=== PATIENT | male | born 1940 | race Caucasian/White ===

== ENCOUNTER 2021-02-23 15:22 | Inpatient (IN) ==
[2021-02-23] MEDS ORDERED: ACETAMINOPHEN 500 MG TABLET ONE (16:03)
[2021-02-23 16:14] LABS: Basophils # 0.1 10*3/uL (0.0-0.2); Basophils % 0.3 % (0.0-0.8); Eosinophils # 0.1 10*3/uL (0.0-0.87); Eosinophils % 0.5 % (0.00-10.9); Hematocrit 28.9 VOL% (42.0-52.0); Hemoglobin 9.1 GM/DL (14.0-18.0); Immature Granulocytes % 0.5 %; Immature Granulocytes Absolute 0.08 #; Lymphocytes # 1.3 10*3/uL (1.4-4.0); Mean Corpuscular HGB Conc 31.5 GM/DL (32-36); Mean Platelet Volume 11.2 FL (9.6-12.0); Monocytes % 7.4 % (1.7-12.7); Neutrophils % 82.3 % (38.7-73.9); Platelet Count 272 T/CUMM (130-400); Red Blood Count 3.32 MC/CUMM (3.8-5.5); Red Cell Distribution Width 16.5 % (9.3-17.3); White Blood Count 14.8 T/CUMM (4-12)
[2021-02-23] MEDS ORDERED: LEVOFLOXACIN INJ 750 MG/150 ML PREMIX IV STA (16:15)
[2021-02-23 16:18] LABS: ABG Base Excess 0.1 MMOL/L (-2.5-2.5); ABG HCO3 22.5 MMOL/L (20-26); ABG PCO2 28.4 MM HG (35-48); ABG PH 7.517 (7.35-7.45); ABG PO2 82.2 MM HG (80-95); ABG TCO2 23.4 MMOL/L (23-27)
[2021-02-23 16:34] LABS: Albumin 2.6 G/DL (3.4-5.0); Bilirubin,Total 0.6 MG/DL (0.2-1.0); Calcium 8.7 MG/DL (8.5-10.1); Osmolality,Calculated 281.5 MOS/KG (273-304); Potassium 3.7 MMOL/L (3.5-5.1); Total Protein 6.8 G/DL (6.4-8.2)
[2021-02-23 16:37] LABS: Anisocytosis Slight; Eosinophils 1 % (0-10); Lymphocytes 6 % (20-55); Segmented Neutrophils 84 % (50-85); Total Cells Counted 100
[2021-02-23 16:38] LABS: Acanthocytes Few; Platelet Estimate Adequate; Poikilocytosis Few; Polychromasia Few
[2021-02-23 16:40] LABS: INR 1.3; PT Patient Result 14.3 SECS (10.5-12.0); Partial Thromboplastin Time 34.8 SECS (23.9-33.8)
[2021-02-23] MEDS ORDERED: ACETAMINOPHEN 500 MG TABLET PO STA (16:54)
[2021-02-23] MEDS ORDERED: FUROSEMIDE 100 MG/10 ML VIAL IV STA (17:04)
[2021-02-23] MEDS ORDERED: PIPERACILLIN/TAZOBACTAM 3,375 MG in SODIUM CHLORIDE 0.9% 100 ML IV STA ×2 (17:04→17:17)
[2021-02-23] MEDS ORDERED: ONDANSETRON 4 MG/2 ML VIAL IV PRN (17:21)
[2021-02-23] MEDS ORDERED: LEVOFLOXACIN INJ 750 MG/150 ML PREMIX IV SCH (17:30)
[2021-02-23] MEDS: PIPERACILLIN/TAZOBACTAM 3,375 MG in SODIUM CHLORIDE 0.9% 100 ML IV SCH (19:39)
[2021-02-23] MEDS: AMIODARONE 200 MG TABLET PO SCH (20:40)
[2021-02-23] MEDS: clonazePAM 0.5 MG TABLET PO SCH (20:40)
[2021-02-23] MEDS: MEMANTINE 10 MG TABLET PO SCH (20:40)
[2021-02-23] MEDS: DOCUSATE SODIUM 100 MG CAPSULE PO SCH (20:40)
[2021-02-23] MEDS: rOPINIRole 0.25 MG TABLET PO SCH (20:40)
[2021-02-23] MEDS ORDERED: APIXABAN 2.5 MG TABLET PO SCH (21:00)
[2021-02-23 22:55] LABS: Bilirubin,Urine Negative (Negative); Blood, Urine Moderate mg/dL (Negative); Glucose,Urine (UA) Negative (Negative); Ketones,Urine Negative (Negative); Mucus,Urine Occasional /LPF (Occasional); Nitrite,Urine Negative (Negative); Protein,Urine Negative; RBC,Urine <1 /HPF (0-4); Urine Appearance CLEAR (Clear); Urine Color Colorless (Yellow); Urine Specific Gravity 1.008 (1.001-1.035); Urine Urobilinogen < 2.0 EU/DL (0.2-1.0)
[2021-02-24] MEDS ORDERED: FUROSEMIDE 40 MG/4 ML VIAL IV ONE
[2021-02-24] MEDS: PIPERACILLIN/TAZOBACTAM 3,375 MG in SODIUM CHLORIDE 0.9% 100 ML IV SCH ×3 (00:30→19:10)
[2021-02-24 06:33] LABS: Basophils # 0.1 10*3/uL (0.0-0.2); Basophils % 0.4 % (0.0-0.8); Eosinophils # 0.1 10*3/uL (0.0-0.87); Hematocrit 30.2 VOL% (42.0-52.0); Hemoglobin 9.6 GM/DL (14.0-18.0); Immature Granulocytes % 0.6 %; Immature Granulocytes Absolute 0.08 #; Lymphocytes # 1.4 10*3/uL (1.4-4.0); Lymphocytes % 9.5 % (21.2-54.2); Mean Corpuscular HGB Conc 31.8 GM/DL (32-36); Mean Corpuscular Volume 86.5 FL (87-102); Mean Platelet Volume 11.1 FL (9.6-12.0); Monocytes % 7.1 % (1.7-12.7); Neutrophils % 81.4 % (38.7-73.9); Platelet Count 246 T/CUMM (130-400); Red Blood Count 3.49 MC/CUMM (3.8-5.5); Red Cell Distribution Width 16.4 % (9.3-17.3); White Blood Count 14.3 T/CUMM (4-12)
[2021-02-24 07:06] LABS: Albumin 2.5 G/DL (3.4-5.0); Calcium 8.8 MG/DL (8.5-10.1); Osmolality,Calculated 277.7 MOS/KG (273-304); Potassium 3.1 MMOL/L (3.5-5.1); Total Protein 7.2 G/DL (6.4-8.2)
[2021-02-24] MEDS: ACETAMINOPHEN 325 MG TABLET PO PRN ×2 (09:50→23:30)
[2021-02-24] MEDS: DUTASTERIDE 0.5 MG CAPSULE PO SCH (09:50)
[2021-02-24] MEDS: PANTOPRAZOLE 40 MG TABLET PO SCH (09:51)
[2021-02-24] MEDS: CARBIDOPA/LEVODOPA CR 25-100 MG TABLET PO SCH ×3 (09:51→16:25)
[2021-02-24] MEDS: DOCUSATE SODIUM 100 MG CAPSULE PO SCH ×2 (09:52→20:31)
[2021-02-24] MEDS: AMIODARONE 200 MG TABLET PO SCH ×2 (09:57→20:31)
[2021-02-24] MEDS: LIDOCAINE 5% PATCH TRANSDERM SCH (10:01)
[2021-02-24] MEDS: MEMANTINE 10 MG TABLET PO SCH ×2 (10:02→20:31)
[2021-02-24] MEDS: rOPINIRole 0.25 MG TABLET PO SCH ×3 (10:02→20:30)
[2021-02-24] MEDS ORDERED: LEVOFLOXACIN INJ 750 MG/150 ML PREMIX IV SCH (17:00)
[2021-02-24] MEDS ORDERED: NON-FORMULARY MEDICATION (Omeprazole 20 MG capsule,delayed release(DR/EC)) PO SCH (17:00)
[2021-02-24] MEDS: FUROSEMIDE 40 MG/4 ML VIAL IV SCH (20:30)
[2021-02-24] MEDS: clonazePAM 0.5 MG TABLET PO SCH (20:31)
[2021-02-25] MEDS: PIPERACILLIN/TAZOBACTAM 3,375 MG in SODIUM CHLORIDE 0.9% 100 ML IV SCH ×3 (01:21→18:02)
[2021-02-25 06:08] LABS: Basophils # 0.1 10*3/uL (0.0-0.2); Basophils % 0.5 % (0.0-0.8); Eosinophils # 0.6 10*3/uL (0.0-0.87); Hematocrit 31.6 VOL% (42.0-52.0); Hemoglobin 10.1 GM/DL (14.0-18.0); Immature Granulocytes % 0.6 %; Immature Granulocytes Absolute 0.08 #; Lymphocytes # 1.6 10*3/uL (1.4-4.0); Lymphocytes % 11.3 % (21.2-54.2); Mean Corpuscular Volume 85.2 FL (87-102); Monocytes % 7.3 % (1.7-12.7); Neutrophils % 76.3 % (38.7-73.9); Platelet Count 266 T/CUMM (130-400); Red Blood Count 3.71 MC/CUMM (3.8-5.5); Red Cell Distribution Width 16.2 % (9.3-17.3)
[2021-02-25 06:52] LABS: Calcium 8.9 MG/DL (8.5-10.1); Osmolality,Calculated 282.4 MOS/KG (273-304)
[2021-02-25] MEDS ORDERED: POTASSIUM CHLORIDE 20 MEQ TABLET PO ONE (06:53)
[2021-02-25] MEDS: TAMSULOSIN 0.4 MG CAPSULE PO SCH ×2 (09:46→21:09)
[2021-02-25] MEDS: AMIODARONE 200 MG TABLET PO SCH ×2 (09:46→21:09)
[2021-02-25] MEDS: MEMANTINE 10 MG TABLET PO SCH ×2 (09:46→21:09)
[2021-02-25] MEDS: CARBIDOPA/LEVODOPA CR 25-100 MG TABLET PO SCH ×3 (09:46→18:00)
[2021-02-25] MEDS: PANTOPRAZOLE 40 MG TABLET PO SCH (09:46)
[2021-02-25] MEDS: DOCUSATE SODIUM 100 MG CAPSULE PO SCH ×2 (09:47→21:09)
[2021-02-25] MEDS: rOPINIRole 0.25 MG TABLET PO SCH ×3 (09:47→21:10)
[2021-02-25] MEDS: FUROSEMIDE 40 MG/4 ML VIAL IV SCH ×2 (09:47→16:27)
[2021-02-25] MEDS: POTASSIUM CHLORIDE 20 MEQ TABLET PO SCH (09:50)
[2021-02-25] MEDS: DUTASTERIDE 0.5 MG CAPSULE PO SCH (09:50)
[2021-02-25] MEDS: LIDOCAINE 5% PATCH TRANSDERM SCH (10:13)
[2021-02-25] MEDS: LEVOFLOXACIN 750 MG TABLET PO SCH (12:00)
[2021-02-25] MEDS: clonazePAM 0.5 MG TABLET PO SCH (21:09)
[2021-02-26] MEDS: PIPERACILLIN/TAZOBACTAM 3,375 MG in SODIUM CHLORIDE 0.9% 100 ML IV SCH (01:52)
[2021-02-26 05:13] LABS: Basophils # 0.1 10*3/uL (0.0-0.2); Basophils % 0.6 % (0.0-0.8); Eosinophils # 0.7 10*3/uL (0.0-0.87); Eosinophils % 5.8 % (0.00-10.9); Hematocrit 31.1 VOL% (42.0-52.0); Immature Granulocytes % 0.3 %; Immature Granulocytes Absolute 0.04 #; Lymphocytes # 1.5 10*3/uL (1.4-4.0); Lymphocytes % 12.6 % (21.2-54.2); Mean Corpuscular HGB Conc 32.2 GM/DL (32-36); Mean Corpuscular Volume 84.7 FL (87-102); Mean Platelet Volume 10.9 FL (9.6-12.0); Neutrophils % 72.7 % (38.7-73.9); Platelet Count 258 T/CUMM (130-400); Red Blood Count 3.67 MC/CUMM (3.8-5.5); Red Cell Distribution Width 16.4 % (9.3-17.3)
[2021-02-26 05:39] LABS: Hypochromasia 1+
[2021-02-26 05:40] LABS: Microcytosis 1+; Platelet Estimate Adequate
[2021-02-26 05:44] LABS: Albumin 2.5 G/DL (3.4-5.0); Bilirubin,Total 1.2 MG/DL (0.20-1.00); Calcium 9.1 MG/DL (8.5-10.1); Osmolality,Calculated 282.5 MOS/KG (273-304); Potassium 3.1 MMOL/L (3.5-5.1); Total Protein 7.6 G/DL (6.4-8.2)
[2021-02-26] MEDS ORDERED: POTASSIUM CHLORIDE 20 MEQ TABLET PO ONE (07:11)
[2021-02-26] MEDS: POTASSIUM CHLORIDE 20 MEQ TABLET PO SCH (09:06)
[2021-02-26] MEDS: MEMANTINE 10 MG TABLET PO SCH ×2 (09:07→21:16)
[2021-02-26] MEDS: PANTOPRAZOLE 40 MG TABLET PO SCH (09:07)
[2021-02-26] MEDS: DUTASTERIDE 0.5 MG CAPSULE PO SCH (09:07)
[2021-02-26] MEDS: DOCUSATE SODIUM 100 MG CAPSULE PO SCH ×2 (09:07→21:18)
[2021-02-26] MEDS: LEVOFLOXACIN 750 MG TABLET PO SCH (09:07)
[2021-02-26] MEDS: TAMSULOSIN 0.4 MG CAPSULE PO SCH ×2 (09:07→21:16)
[2021-02-26] MEDS: CARBIDOPA/LEVODOPA CR 25-100 MG TABLET PO SCH ×3 (09:07→16:17)
[2021-02-26] MEDS: rOPINIRole 0.25 MG TABLET PO SCH ×3 (09:07→21:16)
[2021-02-26] MEDS: LIDOCAINE 5% PATCH TRANSDERM SCH (09:08)
[2021-02-26] MEDS: FUROSEMIDE 40 MG/4 ML VIAL IV SCH ×2 (09:08→15:59)
[2021-02-26] MEDS ORDERED: SPIRONOLACTONE 25 MG TABLET PO SCH (14:31)
[2021-02-26] MEDS: SPIRONOLACTONE 25 MG TABLET PO SCH (17:10)
[2021-02-26] MEDS: clonazePAM 0.5 MG TABLET PO SCH (21:16)
[2021-02-26] MEDS ORDERED: LOPERAMIDE 2 MG CAPSULE PO PRN (22:00)
[2021-02-27 07:05] LABS: Calcium 9.1 MG/DL (8.5-10.1); Osmolality,Calculated 281.7 MOS/KG (273-304); Potassium 3.4 MMOL/L (3.5-5.1)
[2021-02-27 07:17] LABS: Albumin 2.4 G/DL (3.4-5.0); Bilirubin,Direct 0.16 MG/DL (0.0-0.20); Bilirubin,Indirect 0.5 MG/DL (0.0-1.0); Bilirubin,Total 0.7 MG/DL (0.20-1.00); Total Protein 7.6 G/DL (6.4-8.2)
[2021-02-27] MEDS: LIDOCAINE 5% PATCH TRANSDERM SCH (09:48)
[2021-02-27] MEDS: FUROSEMIDE 40 MG/4 ML VIAL IV SCH (09:51)
[2021-02-27] MEDS: POTASSIUM CHLORIDE 20 MEQ TABLET PO SCH (09:51)
[2021-02-27] MEDS: MEMANTINE 10 MG TABLET PO SCH (09:51)
[2021-02-27] MEDS: CARBIDOPA/LEVODOPA CR 25-100 MG TABLET PO SCH ×2 (09:51→14:15)
[2021-02-27] MEDS: TAMSULOSIN 0.4 MG CAPSULE PO SCH (09:52)
[2021-02-27] MEDS: DUTASTERIDE 0.5 MG CAPSULE PO SCH (09:52)
[2021-02-27] MEDS: rOPINIRole 0.25 MG TABLET PO SCH (09:52)
[2021-02-27] MEDS: SPIRONOLACTONE 25 MG TABLET PO SCH (09:52)
[2021-02-27] MEDS: DOCUSATE SODIUM 100 MG CAPSULE PO SCH (09:52)
[2021-02-27] MEDS: PANTOPRAZOLE 40 MG TABLET PO SCH (09:52)
[2021-02-27] MEDS: LEVOFLOXACIN 750 MG TABLET PO SCH (11:27)
[2021-02-27 12:14] VITALS: BP 115/55
[2021-02-28] MEDS ORDERED: FUROSEMIDE 40 MG TABLET PO SCH (09:00)
== END 2021-02-27 16:45 | DRG 689 ==
LOC: EDUNIT# → EDBD → N.ED 15:22 → N.EDINP 17:21 → N.TELES 18:22

== ENCOUNTER 2021-03-08 08:31 | Inpatient (IN) ==
[2021-03-08] MEDS ORDERED: SODIUM CHLORIDE 0.9% 1,000 ML IV STA (09:12)
[2021-03-08 10:25] LABS: Basophils # 0.1 10*3/uL (0.0-0.2); Basophils % 0.9 % (0.0-0.8); Eosinophils # 0.3 10*3/uL (0.0-0.87); Eosinophils % 4.3 % (0.00-10.9); Hematocrit 39.4 VOL% (42.0-52.0); Hemoglobin 12.3 GM/DL (14.0-18.0); Immature Granulocytes % 0.4 %; Immature Granulocytes Absolute 0.03 #; Lymphocytes # 1.6 10*3/uL (1.4-4.0); Lymphocytes % 23.3 % (21.2-54.2); Mean Corpuscular HGB Conc 31.2 GM/DL (32-36); Mean Corpuscular Volume 84.9 FL (87-102); Mean Platelet Volume 10.3 FL (9.6-12.0); Monocytes % 7.7 % (1.7-12.7); Neutrophils % 63.4 % (38.7-73.9); Platelet Count 241 T/CUMM (130-400); Red Blood Count 4.64 MC/CUMM (3.8-5.5); Red Cell Distribution Width 16.3 % (9.3-17.3)
[2021-03-08 10:38] LABS: INR 1.2; PT Patient Result 13.1 SECS (10.5-12.0); Partial Thromboplastin Time 29.8 SECS (23.9-33.8)
[2021-03-08 11:08] LABS: Alanine Aminotransferase 37 U/L (16-61); Alkaline Phosphatase 101 U/L (45-117); Amylase 31 U/L (25-115); Aspartate Amino Transferase 33 U/L (0-37); Blood Urea Nitrogen 27 MG/DL (7-18); Carbon Dioxide 31 MMOL/L (21-32); Estimated Glom Filtration Rate 73 ML/MIN; Glucose 111 MG/DL (74-106); Osmolality,Calculated 278.8 MOS/KG (273-304); Sodium 137 MMOL/L (136-145); Total Protein 8.9 G/DL (6.4-8.2)
[2021-03-08 12:13] LABS: Bacteria,Urine Many /HPF (Few); Bilirubin,Urine Negative (Negative); Blood, Urine Negative (Negative); Glucose,Urine (UA) Negative (Negative); Ketones,Urine Negative (Negative); Nitrite,Urine Negative (Negative); Protein,Urine Negative; RBC,Urine 1 /HPF (0-4); Urine Appearance CLEAR (Clear); Urine Color Yellow (Yellow); Urine Specific Gravity 1.012 (1.001-1.035); Urine Urobilinogen < 2.0 EU/DL (0.2-1.0)
[2021-03-08] MEDS ORDERED: cefTRIAXone 1,000 MG in SODIUM CHLORIDE 0.9% 100 ML IV STA (12:44)
[2021-03-08] MEDS ORDERED: ACETAMINOPHEN 325 MG TABLET PO PRN ×2 (12:45→17:46)
[2021-03-08] MEDS ORDERED: ONDANSETRON 4 MG/2 ML VIAL IV PRN ×2 (12:45→17:46)
[2021-03-08] MEDS ORDERED: SODIUM CHLORIDE 0.9% 1,000 ML IV SCH (13:00)
[2021-03-08] MEDS: SODIUM CHLORIDE 0.9% 1,000 ML IV SCH (16:30)
[2021-03-08] MEDS ORDERED: DOCUSATE SODIUM 100 MG CAPSULE PO SCH (21:00)
[2021-03-08] MEDS: MEMANTINE 10 MG TABLET PO SCH (23:40)
[2021-03-08] MEDS: clonazePAM 0.5 MG TABLET PO SCH (23:40)
[2021-03-08] MEDS: TAMSULOSIN 0.4 MG CAPSULE PO SCH (23:40)
[2021-03-08] MEDS: ASCORBIC ACID 500 MG TABLET PO SCH (23:41)
[2021-03-09 04:28] LABS: Basophils # 0.1 10*3/uL (0.0-0.2); Basophils % 0.8 % (0.0-0.8); Eosinophils # 0.8 10*3/uL (0.0-0.87); Eosinophils % 10.9 % (0.00-10.9); Hematocrit 33.2 VOL% (42.0-52.0); Hemoglobin 10.2 GM/DL (14.0-18.0); Immature Granulocytes % 0.4 %; Immature Granulocytes Absolute 0.03 #; Lymphocytes # 1.7 10*3/uL (1.4-4.0); Lymphocytes % 21.4 % (21.2-54.2); Mean Corpuscular HGB Conc 30.7 GM/DL (32-36); Mean Corpuscular Volume 85.1 FL (87-102); Mean Platelet Volume 10.6 FL (9.6-12.0); Monocytes % 9.3 % (1.7-12.7); Neutrophils % 57.2 % (38.7-73.9); Platelet Count 238 T/CUMM (130-400); Red Cell Distribution Width 16.4 % (9.3-17.3); White Blood Count 7.7 T/CUMM (4-12)
[2021-03-09 05:05] LABS: Albumin 2.6 G/DL (3.4-5.0); Bilirubin,Total 0.5 MG/DL (0.20-1.00); Calcium 9.1 MG/DL (8.5-10.1); Osmolality,Calculated 282.4 MOS/KG (273-304); Potassium 3.9 MMOL/L (3.5-5.1); Total Protein 7.7 G/DL (6.4-8.2)
[2021-03-09] MEDS ORDERED: PANTOPRAZOLE 40 MG TABLET PO SCH (09:00)
[2021-03-09] MEDS: CARBIDOPA/LEVODOPA CR 25-100 MG TABLET PO SCH ×3 (09:51→16:49)
[2021-03-09] MEDS: ASCORBIC ACID 500 MG TABLET PO SCH ×2 (09:51→21:23)
[2021-03-09] MEDS: TAMSULOSIN 0.4 MG CAPSULE PO SCH ×2 (09:51→21:23)
[2021-03-09] MEDS: ASPIRIN EC 81 MG TABLET PO SCH (09:51)
[2021-03-09] MEDS: DUTASTERIDE 0.5 MG CAPSULE PO SCH (09:51)
[2021-03-09] MEDS: MEMANTINE 10 MG TABLET PO SCH ×2 (09:52→21:23)
[2021-03-09] MEDS: POTASSIUM CHLORIDE 20 MEQ TABLET PO SCH (09:52)
[2021-03-09] MEDS: cefTRIAXone 1,000 MG in SODIUM CHLORIDE 0.9% 100 ML IV SCH (09:57)
[2021-03-09] MEDS ORDERED: MAGNESIUM SULF RIDER 2 GM/50 ML PREMIX IV ONE (10:09)
[2021-03-09] MEDS: SODIUM CHLORIDE 0.9% 1,000 ML IV SCH (13:25)
[2021-03-09] MEDS: AZITHROMYCIN INJ 500 MG in SODIUM CHLORIDE 0.9% 250 ML IV SCH (16:10)
[2021-03-09] MEDS: MULTIVITAMIN (OCUVITE) TABLET PO SCH (16:47)
[2021-03-09] MEDS: clonazePAM 0.5 MG TABLET PO SCH (21:22)
[2021-03-10 05:50] LABS: Calcium 8.9 MG/DL (8.5-10.1); Osmolality,Calculated 275.7 MOS/KG (273-304); Potassium 3.6 MMOL/L (3.5-5.1)
[2021-03-10] MEDS: SODIUM CHLORIDE 0.9% 1,000 ML IV SCH (06:39)
[2021-03-10] MEDS ORDERED: DIPHENOXYLATE/ATROPINE 2.5-0.025 MG TABLET PO PRN (08:08)
[2021-03-10] MEDS: FERROUS SULFATE 325 MG TABLET PO SCH (08:39)
[2021-03-10] MEDS: ASPIRIN EC 81 MG TABLET PO SCH (08:39)
[2021-03-10] MEDS: MEMANTINE 10 MG TABLET PO SCH ×2 (08:39→22:32)
[2021-03-10] MEDS: SPIRONOLACTONE 25 MG TABLET PO SCH (08:39)
[2021-03-10] MEDS: DUTASTERIDE 0.5 MG CAPSULE PO SCH (08:39)
[2021-03-10] MEDS: ASCORBIC ACID 500 MG TABLET PO SCH ×2 (08:39→22:32)
[2021-03-10] MEDS: FUROSEMIDE 40 MG TABLET PO SCH (08:39)
[2021-03-10] MEDS: POTASSIUM CHLORIDE 20 MEQ TABLET PO SCH (08:39)
[2021-03-10] MEDS: CARBIDOPA/LEVODOPA CR 25-100 MG TABLET PO SCH ×3 (08:39→17:55)
[2021-03-10] MEDS: rOPINIRole 0.25 MG TABLET PO SCH ×3 (08:39→22:32)
[2021-03-10] MEDS: TAMSULOSIN 0.4 MG CAPSULE PO SCH ×2 (08:39→22:32)
[2021-03-10] MEDS: FOLIC ACID 1 MG TABLET PO SCH ×3 (08:39→22:32)
[2021-03-10] MEDS: cefTRIAXone 1,000 MG in SODIUM CHLORIDE 0.9% 100 ML IV SCH (08:40)
[2021-03-10] MEDS: AZITHROMYCIN INJ 500 MG in SODIUM CHLORIDE 0.9% 250 ML IV SCH (11:41)
[2021-03-10] MEDS ORDERED: TUBERCULIN SKIN TEST 0.1 ML SYRINGE INTRADERM ONE (12:53)
[2021-03-10] MEDS: MULTIVITAMIN (OCUVITE) TABLET PO SCH (17:55)
[2021-03-10] MEDS ORDERED: HALOPERIDOL 5 MG/ML AMP IM ONE (18:25)
[2021-03-10] MEDS: clonazePAM 0.5 MG TABLET PO SCH (22:32)
[2021-03-11 04:48] LABS: Basophils # 0.1 10*3/uL (0.0-0.2); Basophils % 0.9 % (0.0-0.8); Eosinophils # 0.7 10*3/uL (0.0-0.87); Eosinophils % 9.6 % (0.00-10.9); Hematocrit 34.5 VOL% (42.0-52.0); Hemoglobin 10.6 GM/DL (14.0-18.0); Immature Granulocytes % 0.4 %; Immature Granulocytes Absolute 0.03 #; Lymphocytes # 2.1 10*3/uL (1.4-4.0); Lymphocytes % 28.5 % (21.2-54.2); Mean Corpuscular HGB Conc 30.7 GM/DL (32-36); Mean Corpuscular Volume 84.8 FL (87-102); Mean Platelet Volume 10.7 FL (9.6-12.0); Monocytes % 10.2 % (1.7-12.7); Neutrophils % 50.4 % (38.7-73.9); Platelet Count 251 T/CUMM (130-400); Red Blood Count 4.07 MC/CUMM (3.8-5.5); Red Cell Distribution Width 16.4 % (9.3-17.3); White Blood Count 7.5 T/CUMM (4-12)
[2021-03-11 05:16] LABS: Hypochromasia 1+; Microcytosis 1+; Platelet Estimate Adequate
[2021-03-11 05:23] LABS: Albumin 2.7 G/DL (3.4-5.0); Bilirubin,Total 0.8 MG/DL (0.20-1.00); Calcium 9.1 MG/DL (8.5-10.1); Osmolality,Calculated 280.3 MOS/KG (273-304); Potassium 3.3 MMOL/L (3.5-5.1); Risk Ratio 4.16; Total Protein 7.7 G/DL (6.4-8.2); VLDL Cholesterol 13.4 MG/DL
[2021-03-11] MEDS: ASPIRIN EC 81 MG TABLET PO SCH (08:39)
[2021-03-11] MEDS: FUROSEMIDE 40 MG TABLET PO SCH (08:39)
[2021-03-11] MEDS: FERROUS SULFATE 325 MG TABLET PO SCH (08:39)
[2021-03-11] MEDS: rOPINIRole 0.25 MG TABLET PO SCH ×3 (08:39→21:50)
[2021-03-11] MEDS: MEMANTINE 10 MG TABLET PO SCH ×2 (08:39→21:50)
[2021-03-11] MEDS: ASCORBIC ACID 500 MG TABLET PO SCH ×2 (08:40→21:50)
[2021-03-11] MEDS: CARBIDOPA/LEVODOPA CR 25-100 MG TABLET PO SCH ×3 (08:40→17:39)
[2021-03-11] MEDS: SPIRONOLACTONE 25 MG TABLET PO SCH (08:40)
[2021-03-11] MEDS: FOLIC ACID 1 MG TABLET PO SCH ×3 (08:40→21:50)
[2021-03-11] MEDS: TAMSULOSIN 0.4 MG CAPSULE PO SCH ×2 (08:40→21:50)
[2021-03-11] MEDS: cefTRIAXone 1,000 MG in SODIUM CHLORIDE 0.9% 100 ML IV SCH (08:41)
[2021-03-11] MEDS: POTASSIUM CHLORIDE 20 MEQ TABLET PO SCH ×2 (08:41→21:50)
[2021-03-11] MEDS: SODIUM CHLORIDE 0.9% 1,000 ML IV SCH (09:24)
[2021-03-11] MEDS: DUTASTERIDE 0.5 MG CAPSULE PO SCH (09:24)
[2021-03-11] MEDS: MAGNESIUM SULF INJ 2 GM, POTASSIUM CHLORIDE INJ 20 MEQ in SODIUM CHLORIDE 0.9% 1,000 ML IV SCH (09:58)
[2021-03-11] MEDS: AZITHROMYCIN INJ 500 MG in SODIUM CHLORIDE 0.9% 250 ML IV SCH (11:52)
[2021-03-11] MEDS: MULTIVITAMIN (OCUVITE) TABLET PO SCH (17:39)
[2021-03-11] MEDS: clonazePAM 0.5 MG TABLET PO SCH (21:50)
[2021-03-11] MEDS: CITALOPRAM 20 MG TABLET PO SCH (21:50)
[2021-03-12] MEDS: MAGNESIUM SULF INJ 2 GM, POTASSIUM CHLORIDE INJ 20 MEQ in SODIUM CHLORIDE 0.9% 1,000 ML IV SCH ×2 (00:29→15:07)
[2021-03-12 04:59] LABS: Basophils # 0.1 10*3/uL (0.0-0.2); Basophils % 1.1 % (0.0-0.8); Eosinophils # 0.7 10*3/uL (0.0-0.87); Eosinophils % 10.7 % (0.00-10.9); Hematocrit 33.9 VOL% (42.0-52.0); Hemoglobin 10.5 GM/DL (14.0-18.0); Immature Granulocytes % 0.3 %; Immature Granulocytes Absolute 0.02 #; Lymphocytes % 30.3 % (21.2-54.2); Mean Corpuscular Volume 84.8 FL (87-102); Mean Platelet Volume 10.9 FL (9.6-12.0); Monocytes % 9.5 % (1.7-12.7); Neutrophils % 48.1 % (38.7-73.9); Platelet Count 240 T/CUMM (130-400); Red Cell Distribution Width 16.7 % (9.3-17.3); White Blood Count 6.6 T/CUMM (4-12)
[2021-03-12 05:27] LABS: Calcium 8.8 MG/DL (8.5-10.1); Osmolality,Calculated 283.1 MOS/KG (273-304); Potassium 3.7 MMOL/L (3.5-5.1)
[2021-03-12] MEDS: ASCORBIC ACID 500 MG TABLET PO SCH ×2 (08:55→21:17)
[2021-03-12] MEDS: rOPINIRole 0.25 MG TABLET PO SCH ×3 (08:55→21:18)
[2021-03-12] MEDS: TAMSULOSIN 0.4 MG CAPSULE PO SCH ×2 (08:55→21:17)
[2021-03-12] MEDS: CARBIDOPA/LEVODOPA CR 25-100 MG TABLET PO SCH ×3 (08:55→16:10)
[2021-03-12] MEDS: ASPIRIN EC 81 MG TABLET PO SCH (08:55)
[2021-03-12] MEDS: POTASSIUM CHLORIDE 20 MEQ TABLET PO SCH ×2 (08:56→21:17)
[2021-03-12] MEDS: SPIRONOLACTONE 25 MG TABLET PO SCH (08:56)
[2021-03-12] MEDS: FUROSEMIDE 40 MG TABLET PO SCH (08:56)
[2021-03-12] MEDS: MEMANTINE 10 MG TABLET PO SCH ×2 (08:56→21:17)
[2021-03-12] MEDS: DUTASTERIDE 0.5 MG CAPSULE PO SCH (08:56)
[2021-03-12] MEDS: FERROUS SULFATE 325 MG TABLET PO SCH (08:56)
[2021-03-12] MEDS: CEFUROXIME 250 MG TABLET PO SCH ×2 (08:59→21:17)
[2021-03-12] MEDS: FOLIC ACID 1 MG TABLET PO SCH ×3 (09:00→21:17)
[2021-03-12] MEDS: MULTIVITAMIN (OCUVITE) TABLET PO SCH (16:10)
[2021-03-12] MEDS: clonazePAM 0.5 MG TABLET PO SCH (21:17)
[2021-03-12] MEDS: CITALOPRAM 20 MG TABLET PO SCH (21:17)
[2021-03-13] MEDS: MAGNESIUM SULF INJ 2 GM, POTASSIUM CHLORIDE INJ 20 MEQ in SODIUM CHLORIDE 0.9% 1,000 ML IV SCH (03:54)
[2021-03-13 06:42] LABS: Basophils # 0.1 10*3/uL (0.0-0.2); Basophils % 0.8 % (0.0-0.8); Eosinophils # 0.4 10*3/uL (0.0-0.87); Eosinophils % 5.9 % (0.00-10.9); Hematocrit 34.8 VOL% (42.0-52.0); Immature Granulocytes % 0.3 %; Immature Granulocytes Absolute 0.02 #; Lymphocytes # 1.8 10*3/uL (1.4-4.0); Lymphocytes % 25.3 % (21.2-54.2); Mean Corpuscular HGB Conc 31.6 GM/DL (32-36); Mean Corpuscular Volume 84.9 FL (87-102); Mean Platelet Volume 11.7 FL (9.6-12.0); Monocytes % 9.4 % (1.7-12.7); Neutrophils % 58.3 % (38.7-73.9); Platelet Count 247 T/CUMM (130-400); Red Cell Distribution Width 16.9 % (9.3-17.3); White Blood Count 7.2 T/CUMM (4-12)
[2021-03-13 07:12] LABS: Calcium 9.2 MG/DL (8.5-10.1); Osmolality,Calculated 274.7 MOS/KG (273-304)
[2021-03-13] MEDS: ASPIRIN EC 81 MG TABLET PO SCH (08:21)
[2021-03-13] MEDS: rOPINIRole 0.25 MG TABLET PO SCH (08:22)
[2021-03-13] MEDS: CARBIDOPA/LEVODOPA CR 25-100 MG TABLET PO SCH ×2 (08:22→13:30)
[2021-03-13] MEDS: CEFUROXIME 250 MG TABLET PO SCH (08:22)
[2021-03-13] MEDS: FUROSEMIDE 40 MG TABLET PO SCH (08:22)
[2021-03-13] MEDS: FERROUS SULFATE 325 MG TABLET PO SCH (08:23)
[2021-03-13] MEDS: POTASSIUM CHLORIDE 20 MEQ TABLET PO SCH (08:23)
[2021-03-13] MEDS: ASCORBIC ACID 500 MG TABLET PO SCH (08:23)
[2021-03-13] MEDS: SPIRONOLACTONE 25 MG TABLET PO SCH (08:23)
[2021-03-13] MEDS: MEMANTINE 10 MG TABLET PO SCH (08:24)
[2021-03-13] MEDS: FOLIC ACID 1 MG TABLET PO SCH (08:24)
[2021-03-13] MEDS: DUTASTERIDE 0.5 MG CAPSULE PO SCH (08:26)
[2021-03-13] MEDS: TAMSULOSIN 0.4 MG CAPSULE PO SCH (08:26)
[2021-03-13 11:30] VITALS: BP 112/66
== END 2021-03-13 15:30 | DRG 197 ==
LOC: EDUNIT# → EDBD → N.EDINP 08:31 → N.ED 08:31 → N.4E 13:14
PROVIDERS: ADMIT Family Medicine; ATTEND Family Medicine